=== PATIENT | male | born 1950 | race Caucasian/White ===

== ENCOUNTER 2018-11-20 09:12 | Day surgery (SDC) | payer MEDICARE, OTHER ==
[2018-11-20] VITALS (8 sets, daily range): BP systolic 115–131; BP diastolic 76–82
[~2018-11-20] VITALS: Ht 172.7 cm; Wt 85.3 kg
--- NOTE | 2018-11-20 06:54 | Anethesia Preoperative Eval ---
Anesthesia Pre-op PMH/ROS General Date of Evaluation: Nov 20, 2018 Time of Evaluation: 06:51 Anesthesiologist: ivy ASA Score: ASA 3 Mallampati Score Class I : Soft palate, uvula, fauces, pillars visible Class II: Soft palate, uvula, fauces visible Class III: Soft palate, base of uvula visible Class IV: Only hard plate visible Mallampati Classification: Class II Surgeon: alannah Diagnosis: gerd, colo screening Surgical Procedure: egd/colonoscopy Anesthesia History: none Social History: smoking - former smoker Family History: no anesthesia problems Allergies: Coded Allergies: NO KNOWN DRUG ALLERGIES (Verified Allergy, Unknown, 11/20/18) Medications: see eMAR Patient NPO?: Yes Past Medical History Gastrointestinal/Genitourinary: Reports: GERD, other - gallbladder disease Endocrine: Reports: DM HEENT: Reports: glaucoma PSxH Narrative: cholecystectomy Anesthesia Pre-op Phys. Exam Physician Exam Last Vital Signs Date Time Temp Pulse Resp B/P (MAP) Pulse Ox O2 Delivery O2 Flow Rate FiO2 11/20/18 09:42 Room Air 11/20/18 09:39 97.9 63 18 131/81 98 Constitutional: NAD Neurologic: CN 2-12 intact Cardiovascular: RRR Respiratory: CTA Gastrointestinal: S/NT/ND Airway Exam Mallampati Score: Class II MO: limited Neck: flexible TMD: 2fb ROM: limited Anesthesia Pre-op A/P Risk Assessment & Plan Assessment: asa3 Plan: mac Status Change Before Surgery: No Pre-Antibiotics Drug: Beverley Villalpando MD Nov 20, 2018 06:54
[~2018-11-20 09:12] MED LIST: ASPIR-LOW81 MG ORAL; Atropine Inj 1mg/10ml Syr IV PRN; DiphenhydrAMINE 50mg/ml Inj IVP PRN; LINZESS145 MCG PO; LOSARTAN POTASS50 MG ORAL; LR 1000ml 1,000 ML IVLG SCH; METFORMIN HCL500 M1 ORAL; Midazolam 2mg/2ml Inj IVP PRN; SUBOXONE 8 MG-1 EACH SL; fentaNYL 100 mcg/2 mL IV PRN
--- NOTE | 2018-11-20 10:33 | Short Stay Surgery H&P ---
History of Present Illness History of Present Illness Chief Complaint Abdominal pains/GERDs/screening colonoscopy MONALISA Whitley is a 68 year old male who was admitted on for Screening Colon, Gerds Patient History Allergies: Coded Allergies: NO KNOWN DRUG ALLERGIES (Verified Allergy, Unknown, 11/20/18) PAST MEDICAL HISTORY: (1) Diabetes (2) BPH (benign prostatic hyperplasia) (3) History of cholecystectomy (4) History of brain surgery Medication History Scheduled Buprenorphine Hcl/Naloxone Hcl* (Suboxone 8 Mg-2 Mg Sl Film*), 1 EACH SL DAILY, (Reported) Linaclotide (Linzess), 145 MCG PO DA, (Reported) Losartan Potassium* (Losartan Potassium*), 50 MG ORAL DAILY, (Reported) Metformin Hcl* (Metformin Hcl*), 500 MG ORAL BID, (Reported) Discontinued Medications Aspirin* (Aspir-Low*), 81 MG ORAL DAILY, (Reported) Discontinued Reason: Pt stopped taking med Review of Systems Cardiovascular: Reports: no symptoms Respiratory: Reports: no symptoms Skeletal: Reports: no symptoms Gastrointestinal: Reports: gastro esophageal reflux disease Genitourinary: Reports: BPH Neurologic: Reports: no symptoms Endocrine: Reports: no symptoms Hematologic: Reports: no symptoms Physical Exam Vital Signs Last Vital Signs Date Time Temp Pulse Resp B/P (MAP) Pulse Ox O2 Delivery O2 Flow Rate FiO2 11/20/18 09:42 Room Air 11/20/18 09:39 97.9 63 18 131/81 98 Skin: normal HENT: normal Heart: normal Lungs: normal Abdomen: abnormal Extremities: normal Genitourinary: normal Plan Plan of Care Upper and lower GI endoscopies with possible biopsy. Preop Interventions None. Summary of Findings See the reports. Attestation Are the patient's medical conditions optimized for surgery? Attestation Response: yes Lori Ortiz MD Nov 20, 2018 10:33
--- NOTE | 2018-11-20 10:34 | Pre-Procedure Note/Attestation ---
Pre-Procedure Note/Attestation Complete Prior to Procedure Planned Procedure: left Procedure Narrative: Examination of the upper and the lower GI tracts via endoscopy. Indications for Procedure Pre-Operative Diagnosis: None. Attestation I attest that I discussed the nature of the procedure; its benefits; risks and complications; and alternatives (and the risks and benefits of such alternatives ), prior to the procedure, with the patient (or the patient's legal sales representative wire rope). I attest that, if there was a reasonable possibility of needing a blood transfusion, the patient (or the patient's legal sales representative wire rope) was given the [facility] standardized written summary, pursuant to the [place] Justin Blood Safety Act ([place] Health and Safety Code # 1645, as amended). I attest that I re-evaluated the patient just prior to the surgery and that there has been no change in the patient's H&P, except as documented below: Lori Ortiz MD Nov 20, 2018 10:34
[2018-11-20] MEDS ORDERED: Lidocaine 1% MPF 10mg/ml 5ml ONE (11:00)
[2018-11-20] MEDS ORDERED: Propofol 200mg/20ml IV ONE (11:00)
[2018-11-20] MEDS ORDERED: LR 1000ml ONE (11:00)
--- NOTE | 2018-11-20 11:27 | Endoscopy Procedure Note ---
Endoscopy Procedure Note General Indication for Procedure: Abdominal pains and screening colon Procedures Performed: EGD - Normal Upper GI endoscopy , biopsy was taken per random from gastric body., colonoscopy - Extremely difficult procedure due to poor clean up and high redundancy of colon otherwise completely normal total colonoscopy upto the base of the cecum. Specimen: yes Pt Tolerated Procedure Well: Yes Estimated Blood Loss: none Anesthesia Anesthesiologist: Dr. Joaquin Anesthesia: moderate sedation Medications Medication Given: see anesthesia record Inserted Devices Implant(s) used?: No Quality Quality of Bowel Preparation: Poor Did scope reach the cecum?: Yes Was there any complications?: No GI Core Measures 50 yrs or older w/o bx or poly: Yes 10yrs. F/U recommended: Yes If not recommended, why?: Med reason:<3 yrs.: System Reason:<3 yrs.: Last colonoscopy >= to 3yrs: Yes Lori Ortiz MD Nov 20, 2018 11:27
--- NOTE | 2018-11-20 11:28 | Discharge Instructions ---
Discharge Instructions Discharge Instructions Follow up with: visit the doctor in the office after 2 weeks For Congestive Heart Failure Reminder Report to your physician any weight gain of 5 pounds or more in one week. Lori Ortiz MD Nov 20, 2018 11:28
--- NOTE | 2018-11-20 11:56 | Immediate Post-Op Evaluation ---
Immediate Post-Op Evalulation Immediate Post-Op Evalulation Procedure: egd/colonoscopy w/bx Date of Evaluation: Nov 20, 2018 Time of Evaluation: 11:45 IV Fluids: 500ml lr Blood Products: none Estimated Blood Loss: negligible Blood Pressure Systolic: 115 Blood Pressure Diastolic: 76 Pulse Rate: 56 Respiratory Rate: 18 O2 Sat by Pulse Oximetry: 100 Temperature (Fahrenheit): 97.1 Pain Score (1-10): 0 Nausea: No Vomiting: No Complications none Patient Status: awake, reacts, patent Hydration Status: adequate Drug: Beverley Villalpando MD Nov 20, 2018 11:56
--- NOTE | 2018-11-20 11:57 | 48 Hour Post Anesthesia Eval ---
Post Anesthesia Evaluation Procedure: egd/colonoscopy w/bx Date of Evaluation: Nov 20, 2018 Time of Evaluation: 11:47 Blood Pressure Systolic: 118 0: 77 Pulse Rate: 57 Respiratory Rate: 18 Temperature (Fahrenheit): 97.1 O2 Sat by Pulse Oximetry: 100 Airway: patent Nausea: No Vomiting: No Pain Intensity: 0 Hydration Status: adequate Cardiopulmonary Status: stable Mental Status/LOC: patient returned to baseline Post-Anesthesia Complications: none Follow-up care needed: N/A Beverley Joaquin MD Nov 20, 2018 11:57
--- NOTE | 2018-11-20 21:45 | Operative Note - Dictated ---
DATE OF OPERATION: 11/20/2018 SURGEON: Lori Ortiz M.D. PROCEDURE: Esophagogastroduodenoscopy with biopsy. PREOPERATIVE DIAGNOSES: 1. Abdominal pain. 2. History of GERD. POSTOPERATIVE DIAGNOSES: 1. Completely normal upper GI endoscopy. Biopsy was taken per random from gastric body. 2. Moderate amount of bile in the stomach noted. MEDICATION USED: Per Dr. Beverley Ruiz, anesthesiologist. INSTRUMENT: GIF Olympus upper GI video endoscope. DESCRIPTION OF PROCEDURE: The patient after arriving at the endoscopy unit, was told about risks and benefits of the procedure, which he accepted and signed informed consent. At this time, he was put in the left lateral decubitus position. After adequate IV sedation, the scope was gently passed through the cricopharyngeal area, was lodged into the upper esophagus, and gradually advanced towards gastroesophageal junction. The entire length of the esophagus was normal. However, there was some minimal exudative process over the lower esophagus, which raised the possibility of underlying Debbie esophagus. Therefore, brushing was also done. At this point, the scope was advanced into the stomach. There was no any evidence of hiatal hernia or [place]'s. The areas of the fundus and the body and the antrum were examined in an rehabilitation worker fashion, which revealed normal finding except that there was moderate amount of bile in the stomach, which had to be suctioned. Underlying gastric mucosa looked completely normal. No ulcers, tumors, polyps, etc. was found. At this time, one random biopsy from gastric body was obtained and subsequently scope was passed through the antrum, pylorus, and first and second portion of duodenum were also found to be completely normal. Upon withdrawing the scope into the stomach a retroflexion maneuver was applied and the area of the gastroesophageal junction was examined in a closer fashion, which revealed normal finding. Finally, the scope was pulled out and procedure was terminated. The patient tolerated the procedure well. Lori Ortiz M.D. DR: MARY ANN JOB#: [id number] CC:
--- NOTE | 2018-11-20 21:46 | Operative Note - Dictated ---
DATE OF OPERATION: 11/20/2018 SURGEON: Lori Ortiz M.D. PROCEDURE: Total colonoscopy. PREOPERATIVE DIAGNOSIS: Screening colonoscopy. POSTOPERATIVE DIAGNOSIS: Very difficult procedure due to high redundancy of the colon and poor colon cleanup. However, total colonoscopy up to the base of the cecum was normal. MEDICATION USED: Per Dr. Beverley Ruiz, anesthesiologist. INSTRUMENT: GIF Olympus video colonoscope. DESCRIPTION OF PROCEDURE: The patient after arriving in endoscopy unit, was told about risks and benefits of the procedure, which he accepted and signed informed consent. He was then put on the left lateral decubitus position. After adequate IV sedation, the scope was gently pushed towards the anal area, introduced into the rectum. Retroflexion maneuver was applied here did not reveal any major hemorrhoids. The rectum was also clear of any pathology. However, there was moderate amount of material, which basically signify unclean colon along the colon, which made the examination very difficult as the left colon was highly redundant and significant amount of time was passed to be able to go through this area. However, there was no any intraluminal pathology such as a stricture, tumors, polyps, ulcers, etc. Gradually, the scope reached towards the splenic flexure, guided into the transverse colon, hepatic flexure, and finally introduced into the right colon all the way to the base of the cecum. All these areas remained to be normal and significant number of washing time was given due to the patient poor colon cleanup, which made the examination also in this area quite difficult. However, as I mentioned, no particular pathology such as tumors, polyps, stricture, ulcers, etc. was found. At this time, within 7 minutes, the scope was gradually pulled out and there was no other findings and the procedure was terminated. The patient tolerated the procedure well and left the endoscopy room in a good condition. Lori Ortiz M.D. DR: MARY ANN JOB#: [id number] CC:
== END 2018-11-20 12:50 | disposition home or self-care (01) ==
LOC: GAS 09:12
DX: Z12.11 Encounter for screening for malignant neoplasm of colon (principal); R10.9 Unspecified abdominal pain; K29.50 Unspecified chronic gastritis without bleeding; K21.9 Gastro-esophageal reflux disease without esophagitis; E11.9 Type 2 diabetes mellitus without complications; Z90.49 Acquired absence of other specified parts of digestive tract; Z79.899 Other long term (current) drug therapy; Z79.84 Long term (current) use of oral hypoglycemic drugs; Z79.82 Long term (current) use of aspirin; Z87.891 Personal history of nicotine dependence
CPT/HCPCS: 43239; 82962; G0121; J2704; 94003; 94150